=== PATIENT | male | born 2000 | race Caucasian/White ===

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

== ENCOUNTER 2022-06-05 12:40 | Emergency (ER) | payer BC ==
[2022-06-05 13:01] VITALS: BP 131/86; PULSE 81; RESP 20; TEMP 98.9; BMI 34.7
[2022-06-05] MEDS ORDERED: AZITHROMYCIN 250 MG TABLET PO ONE (13:41)
[2022-06-05] MEDS ORDERED: IBUPROFEN 600 MG TABLET (FP) PO ONE ×2 (13:45→13:46)
[2022-06-05] MEDS ORDERED: AZITHROMYCIN 500 MG TABLET ONE (13:47)
== END 2022-06-05 14:19 | disposition home or self-care (01) ==
LOC: FER 12:40
DX: J40 Bronchitis, not specified as acute or chronic (principal)
CPT/HCPCS: 0241U-QW; 71045-TC-FY; 99284-25